=== PATIENT | male | born 1960 | race Caucasian/White ===

== ENCOUNTER → 2021-08-15 19:05 | Outpatient (BNVA) | payer OTHER, SELFPAY | PROVIDERS: Family Provider Family Medicine; PCP Family Medicine; Visit Provider Nurse Practitioner Family | DX: Z20.822 Contact with and (suspected) exposure to COVID-19 (principal) | CPT/HCPCS: 87426 ==

== ENCOUNTER 2022-07-31 21:10 | Observation (INO) | payer MEDICAID, SELFPAY ==
[2022-07-31] VITALS (13 sets, daily range): BP systolic 121–177; BP diastolic 91–137; PULSE 75–150; RESP 12–21; TEMP 37.2; O2SAT 92–99; BMI 27.8
--- NOTE | 2022-07-31 21:24 | XRR_ITS ---
PROCEDURE INFORMATION: Exam: XR Chest Exam date and time: 07/31/2022 9:30 PM Age: 62 years old Clinical indication: Pain; Chest pressure; Additional info: Cp TECHNIQUE: Imaging protocol: Radiologic exam of the chest. Views: 1 view. COMPARISON: CR XR chest 2V* [id number] 06/05/2019 9:46 AM FINDINGS: Lungs: Mild atelectasis or scar in the lung bases. The lungs are otherwise clear. Pleural spaces: Unremarkable. No pleural effusion. No pneumothorax. Heart/Mediastinum: Unremarkable. No cardiomegaly. Bones/joints: Unremarkable. XR/XR chest 1V portable [id number] IMPRESSION: No acute findings.
[2022-07-31 21:35] LABS: Basophils % 0.5 %; Eosinophils # 0.1 10^3/uL (0.0-0.8); Eosinophils % 0.8 %; Hematocrit 53.4 % (42.0-52.0); Hemoglobin 18.3 g/dL (11.7-16.6); Lymphocytes # 1.1 10^3/uL (0.8-4.8); Lymphocytes % 18.2 %; Mean Corpuscular HGB Conc 34.3 g/dL (30.0-36.0); Mean Corpuscular Hemoglobin 32.4 pg (28.0-34.0); Mean Corpuscular Volume 94.5 fl (80-94); Mean Platelet Volume 9.2 fL (7.4-10.4); Monocytes # 0.8 10^3/uL (0.2-0.9); Monocytes % 12.7 %; Neutrophils % 67.6 %; Nucleated Red Blood Cells % 0 %; Platelet Count 259 10^3/cmm (130-400); Red Blood Count 5.65 10^6/uL (4.1-5.3); White Blood Count 6.1 10^3/uL (4.0-10.0)
[2022-07-31] MEDS: dilTIAZem 5 mg/mL SDV 5 mL 20 MG IVP (21:36)
[2022-07-31] MEDS: dilTIAZem 100 MG in sodium chloride 0.9% (add-van) 100 ML IV (21:45)
[2022-07-31 21:49] LABS: D Dimer 0.77 ug/mIFEU (0-0.59)
[2022-07-31 21:55] LABS: Troponin(5th) Baseline 22 ng/L (0-15)
[2022-07-31 22:05] LABS: Alanine Aminotransferase 45 U/L (0-41); Albumin Level 4.4 g/dL (3.5-5.2); Alkaline Phosphatase 65 U/L (40-130); Anion Gap 12.8 (5-19); Aspartate Amino Transferase 48 U/L (0-40); Blood Urea Nitrogen 11 mg/dL (8-23); Calcium 10.2 mg/dL (8.5-10.5); Carbon Dioxide 31 mmol/L (22-29); Chloride 95 mmol/L (98-107); Globulin 3.1 g/dL (1.3-4.6); Glomerular Filtration Rate 68.1 mL/min (90-130); Glucose 136 mg/dL (65-115); NT Pro B Type Natriuretic Pept 256 pg/mL (0-125); Osmolality Calculated 281 mOsm/kg (285-295); Potassium 3.8 mmol/L (3.5-5.1); Sodium 135 mmol/L (136-145); Thyroid Stimulating Hormone 3.32 uIU/mL (0.27-4.20); Total Bilirubin 0.5 mg/dL (0.15-1.2); Total Protein 7.5 g/dL (6.6-8.7)
[2022-07-31] MEDS: metoprolol tartrate 1 mg/1 mL SDV 5 mL 5 MG IVP (22:50)
--- NOTE | 2022-07-31 23:17 | P.HP_ITS ---
Providers/Chief Complaint Primary Care Provider: Tammy Harrison DO Chief Complaint: Irregular hr and bp, sob History of Present Illness Edgar Cruz is a 62 year old male no significant past medical history presented with chief complaint palpitation. Patient is stating that his symptoms started around 2 PM when he started feeling anxious at that point he noticed his heart rate was very high. He did not experience any shortness of breath or chest pain. He only drinks 1 cup of coffee a day does not use any medications, he notes history of smoking, does not drink alcohol. No history of IV drug abuse. Patient is living a healthy life, works for [email or web address] discussed This test in the ER he was diagnosed with new onset A. fib RVR, his heart rate improved with use of AV tyson blocking agents at the time of evaluation heart rate is in 80s, blood pressure has stabilized as well . His rhythm has not converted to normal sinus Review of Systems Const: Denies: fever(s) Eyes: Denies: change in vision ENMT: Denies: throat pain Card: Denies: chest pain Resp: Denies: dyspnea GI: Denies: abdominal pain : Denies: flank pain Musc: Denies: neck pain Skin/Breast: Denies: rash Neuro: Denies: headache(s) Psych: Reports: anxiety Endo: Denies: polyuria Daryl/Lymph: Denies: easy bruising All/Imm: Denies: urticaria Medications/Allergies Home Medications Medication Instructions Recorded Confirmed Last Taken Type No Known Home Medications 08/11/21 07/31/22 Unknown History Allergies Allergy/AdvReac Type Severity Reaction Status Date / Time No Known Allergies Allergy Verified 08/11/21 12:07 PFSH Acute PFSH: Medical History HTN (hypertension) Surgical History No pertinent past surgical history Family History Other CAD (coronary artery disease) Social History (Updated 08/01/22 @ 00:10 by Clay Arce MD) Smoking and tobacco status: never smoked Alcohol intake: never Substance/Drug Use: never Vitals/I&O/Wt Last Vital Signs Temp 98.9 F 07/31/22 21:12 Pulse 87 07/31/22 23:00 Resp 13 07/31/22 23:00 BP 146/107 07/31/22 23:00 Pulse Ox 92 07/31/22 23:00 O2 Del Method 07/31/22 21:39 07/31/22 07/31/22 08/01/22 14:59 22:59 06:59 Intake Total 1.083 / 1.083 Balance 1.083 / 1.083 Weight last 48 hrs Weight 92.986 kg Physical Exam Narrative: Patient is Radiology Euvolemic S1, S2 variables, heart rate in 70s Abdomen soft Nonfocal neuro exam Normotensive Euvolemic Pleasant cooperative Data 07/31/22 21:30 07/31/22 21:30 A&P Assessment and plan (1) New onset a-fib: New onset A. 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
--- NOTE | 2022-07-31 23:20 | W.ED.SOB ---
HPI - SOB/Dyspnea General: Chief Complaint: Shortness of Breath/Dyspnea Stated Complaint: Irregular hr and bp, sob Time Seen by Provider: 07/31/22 21:24 Source: patient History of Present Illness: HPI Narrative: 62-year-old healthy gentleman with no real prior history. He presents with shortness of breath and palpitations. He denies overt chest pain. He says symptoms started around noon. He had not been active, was walking around the house. This feeling did not improve on its own, so he came for evaluation. He notes that he still quite short of breath. Heart rate was 160s in triage in the ER. MD elicited complaint: shortness of breath Pertinent past history: other Onset (ago): hour(s) Context: other Timing: constant Severity: moderate Exacerbating factors: exertion Relieving factors: nothing Known history of: other Associated symptoms: Reports diaphoresis, dizziness (Mild) and palpitations; Deny abdominal pain, chest congestion, chest pain, cough, fever(s) or vomiting Treatment prior to arrival: none Related Data: Home oxygen amount: none Review of Systems Const: Reports: diaphoresis; Denies: fever(s) ENMT: Denies: throat pain Card: Reports: palpitations; Denies: chest pain Resp: Reports: dyspnea; Denies: productive cough, non-productive cough or chest congestion GI: Denies: abdominal pain or vomiting Musc: Denies: neck pain Neuro: Reports: dizziness (Mild); Denies: headache(s) [facility] ED PFSH: Medical History HTN (hypertension) Surgical History No pertinent past surgical history Family History Other CAD (coronary artery disease) Social History (Updated 08/01/22 @ 00:10 by Clay Arce MD) Smoking and tobacco status: never smoked Alcohol intake: never Substance/Drug Use: never Physical Exam Const: COMMON NORMALS: no acute distress GENERAL APPEARANCE: cooperative and ill appearing; not frail appearing HENMT: COMMON NORMALS: normocephalic, atraumatic and Normal external nose present HEAD & SCALP: normocephalic and atraumatic FACE & SINUS: normal facial exam and face symmetric NOSE: Normal external nose present Eye: COMMON NORMALS: Equal, round and reactive pupils present and EOMs intact bilaterally PUPIL: Yes Equal, round and reactive pupils present Neck/C-Spine: GENERAL: Yes trachea midline Chest: CHEST: Yes Symmetrical chest wall rise Resp: COMMON NORMALS: No retractions, No use of accessory muscles and clear to auscultation bilaterally EFFORT & INSPECTION: Yes tachypneic AUSCULTATION: clear to auscultation bilaterally Cardio: RATE: tachycardic RHYTHM: abnormal rhythm irregularly irregular GI: COMMON NORMALS: Normal to inspection, nondistended, normoactive bowel sounds present Extremity: COMMON NORMALS: no pedal edema Neuro: ROSALBA COMA SCALE: document GCS findings Gilchrist coma scale eye opening: Spontaneous Gilchrist coma scale verbal response: Orientated Gilchrist coma scale motor response: Obey commands Rosalba coma scale total score: 15 SENSORY EXAM: Yes extremities (intact) Psych: COMMON NORMALS: speech normal SPEECH: Yes normal speech Skin: COMMON NORMALS: no rashes or lesions noted GENERAL SKIN EXAM: no rashes or lesions noted Course Vital Signs: Vital signs: Vital Signs Temperature 98.0 F 08/01/22 06:59 Pulse Rate 93 08/01/22 15:21 Respiratory Rate 19 H 08/01/22 15:21 Blood Pressure 109/72 08/01/22 15:21 Pulse Oximetry 97 08/01/22 15:21 Oxygen Delivery Me thod 08/01/22 07:56 MDM - SOB/Dyspnea Medical Decision Making 62-year-old healthy gentleman with palpitations. He presents in rapid atrial fibrillation. Heart rate improved with IV bolus of 20 mg of diltiazem, but then slowly increased. Metoprolol was given as well, followed by diltiazem drip. He is currently at 7.5 on the Cardizem drip. Heart rate is maintaining in the 80s. Still irregular in atrial fibrillation. Blood pressure is 146/100. He is not having any chest pain. First troponin is mildly elevated at 22. His D-dimer is 0.77. PE is excluded by years criteria. Patient will go to [facility]. Hospitalist is aware. Lab Data 07/31/22 21:30 07/31/22 21:30 Labs/Radiology: Radiology Impressions Chest X-Ray 07/31/22 21:24 IMPRESSION: No acute findings. Laboratory Results WBC 5.9 10^3/uL (4.0-10.0) 08/01/22 03:12 RBC 5.35 10^6/uL (4.1-5.3) H 08/01/22 03:12 Hgb 17.4 g/dL (11.7-16.6) H 08/01/22 03:12 Hct 50.4 % (42.0-52.0) 08/01/22 03:12 MCV 94.2 fl (80-94) H 08/01/22 03:12 MCH 32.5 pg (28.0-34.0) 08/01/22 03:12 MCHC 34.5 g/dL (30.0-36.0) 08/01/22 03:12 RDW 14.0 % (12.1-15.1) 08/01/22 03:12 Plt Count 255 10^3/cmm (130-400) 08/01/22 03:12 MPV 9.4 fL (7.4-10.4) 08/01/22 03:12 Neut % (Auto) 72.7 % 08/01/22 03:12 Lymph % (Auto) 14.3 % 08/01/22 03:12 Schley % (Auto) 10.8 % 08/01/22 03:12 Eos % (Auto) 1.0 % 08/01/22 03:12 Baso % (Auto) 0.7 % 08/01/22 03:12 Neut # (Auto) 4.31 10^3/uL (1.8-7.7) 08/01/22 03:12 Lymph # (Auto) 0.9 10^3/uL (0.8-4.8) 08/01/22 03:12 Schley # (Auto) 0.6 10^3/uL (0.2-0.9) 08/01/22 03:12 Eos # (Auto) 0.1 10^3/uL (0.0-0.8) 08/01/22 03:12 Baso # (Auto) 0.0 10^3/uL (0.0-0.1) 08/01/22 03:12 Nucleated RBC % (auto) 0 % 08/01/22 03:12 Nucleated RBCs # 0.0 /100WBC 08/01/22 03:12 D-Dimer 0.77 ug/mIFEU (0-0.59) H 07/31/22 21:30 Sodium 137 mmol/L (136-145) 08/01/22 03:12 Potassium 3.9 mmol/L (3.5-5.1) 08/01/22 03:12 Chloride 101 mmol/L (98-107) 08/01/22 03:12 Carbon Dioxide 26 mmol/L (22-29) 08/01/22 03:12 Anion Gap 13.9 (5-19) 08/01/22 03:12 BUN 11 mg/dL (8-23) 08/01/22 03:12 Creatinine 1.0 mg/dL (0.7-1.2) 08/01/22 03:12 GFR Calculation 76.0 mL/min (90-130) L 08/01/22 03:12 Glucose 103 mg/dL (65-115) 08/01/22 03:12 Calculated Osmolality 284 mOsm/kg (285-295) L 08/01/22 03:12 Calcium 9.5 mg/dL (8.5-10.5) 08/01/22 03:12 Magnesium 2.0 mg/dL (1.7-2.3) 08/01/22 03:12 Total Bilirubin 0.5 mg/dL (0.15-1.2) 07/31/22 21:30 AST 48 U/L (0-40) H 07/31/22 21:30 ALT 45 U/L (0-41) H 07/31/22 21:30 Alkaline Phosphatase 65 U/L (40-130) 07/31/22 21:30 Troponin T Baseline 22 ng/L (0-15) H 07/31/22 21:30 Troponin T 120 Minute 20.53 ng/L (0-15) H 07/31/22 23:00 Delta Troponin T -1.47 ABS# (0-10) L 07/31/22 23:00 Troponin T Hi Sens 6Hr 19.78 ng/L (0-15) H 08/01/22 03:12 Troponin T Hi Sens 6Hr Delta -2.22 ng/L (0-12) L 08/01/22 03:12 NT-Pro-B Natriuret Pep 256 pg/mL (0-125) H 07/31/22 21:30 Total Protein 7.5 g/dL (6.6-8.7) 07/31/22 21:30 Albumin 4.4 g/dL (3.5-5.2) 07/31/22 21:30 Globulin 3.1 g/dL (1.3-4.6) 07/31/22 21:30 TSH 3.32 uIU/mL (0.27-4.20) 07/31/22 21:30 Urine Opiates Screen Negative ng/mL (Negative) 08/01/22 01:15 Ur Barbiturates Screen Negative ng/mL (Negative) 08/01/22 01:15 Ur Phencyclidine Scrn Negative ng/mL (Negative) 08/01/22 01:15 Ur Amphetamines Screen Negative ng/mL (Negative) 08/01/22 01:15 U Benzodiazepines Scrn Negative ng/mL (Negative) 08/01/22 01:15 Urine Cocaine Screen Negative ng/mL (Negative) 08/01/22 01:15 U Marijuana (THC) Screen Negative ng/mL (Negative) 08/01/22 01:15 Critical Care Time Critical Care Time: Critical Care Time: Yes Total Critical Care Time: 40 Attestation: This case had a high probability of a clinically significant, sudden, or life threatening deterioration of this patient's condition which required my full and direct attention, intervention and personal management. Time is independent of any procedures performed. 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
[2022-07-31 23:27] LABS: Troponin 5 2HR 20.53 ng/L (0-15)
--- NOTE | 2022-07-31 23:31 | ECG_ITS ---
[facility] Test Date: 2022-07-31 Pat Name: Edgar Cruz Department: Room: Gender: Male Senior Design Engineering Specialist: : 1960 Requested By: Kemar Schultz Order Number: [id number] Jaqueline MD: William Schmid M.D. Measurements Intervals [place] Rate: 81 P: 0 ID: 0 QRS: -7 QRSD: 93 T: 2 QT: 332 QTc: 386 Interpretive Statements ATRIAL FIBRILLATION POSSIBLE RIGHT VENTRICULAR CONDUCTION DELAY [RSR (QR) IN V1/V2] No previous ECG available for comparison Electronically Signed On 08-01-2022 19:57:38 MANUFACTURING MAINTENANCE MANAGER by William Schmid M.D. [id number]
[2022-07-31 23:33] LABS: Troponin 5 2HR Delta -1.47 ABS# (0-10)
[2022-08-01] VITALS (22 sets, daily range): BP systolic 104–149; BP diastolic 70–113; PULSE 76–126; RESP 11–23; TEMP 36.6–36.8; O2SAT 92–97
--- NOTE | 2022-08-01 00:30 | USCV_ITS ---
Nancy Edgar Age: 62 Gender: M : 1960 Exam Date: 08/01/2022 07:14 Ordering Phys: Clay Arce MD Technologist: ANTHONY Exam Location: [facility] [place] Indication: afib BP: 119 / 81 HR: 99 Rhythm: Sinus Technical Quality: Adequate MEASUREMENTS (Male / Female) Normal Values 2D ECHO LV Diastolic Diameter PLAX 5.6 cm 4.2 - 5.9 / 3.9 - 5.3 cm LV Systolic Diameter PLAX 4.1 cm IVS Diastolic Thickness 0.8 cm 0.6 - 1.0 / 0.6 - 0.9 cm IVS Systolic Thickness 0.9 cm LVPW Diastolic Thickness 0.8 cm 0.6 - 1.0 / 0.6 - 0.9 cm LVPW Systolic Thickness 0.9 cm LVOT Diameter 2.2 cm LV Ejection Fraction 2D Teich 50.9 % LV Ejection Fraction MOD 2C 46.5 % LV Ejection Fraction 2C AL 49.3 % LA Diameter 3.5 cm IVC Diameter 1.9 cm M-MODE Aortic Annulus Diameter 3.9 cm LA Ao Ratio MM 1.1 MV E Point Septal Separation 0.7 cm DOPPLER AV Peak Velocity 75.0 cm/s LVOT Peak Velocity 71.0 cm/s AV Area Cont Eq vti 3.6 cm squared AV Area Cont Eq pk 3.6 cm squared MV Area PHT 5.0 cm squared Mitral E to A Ratio 2.4 MV E' Velocity 36.8 cm/s Mitral E to MV E' Ratio 14.1 Mitral E to LV E' Lateral Ratio 19.5 Mitral E to LV E' Septal Ratio 11.0 TR Peak Velocity 203.3 cm/s TR Peak Gradient 16.5 mmHg TV Peak E Velocity 40.0 cm/s PV Peak Velocity 64.0 cm/s FINDINGS Left Ventricle Left ventricle is mildly dilated. LV systolic function is normal with EF of 50 to 55%. No regional wall motion abnormalities are seen. Diastolic function is indeterminate because of atrial fibrillation. Right Ventricle Normal in size and function Right Atrium Normal in size Left Atrium Dilated Mitral Valve Structurally normal mitral valve. Mild mitral regurgitation. Aortic Valve Structurally normal aortic valve. No significant stenosis or regurgitation Tricuspid Valve Mild tricuspid regurgitation. Insufficient TR jet to calculate RVSP Pulmonic Valve Not well visualized Pericardium Normal Aorta Aortic root is mildly dilated. IVC Appears to be normal CONCLUSIONS Technically limited quality echocardiogram because of poor ultrasonic windows. left ventricle is mildly dilated. LV systolic function is normal with EF 50 to 55%. Diastolic function is indeterminate because of atrial fibrillation Left atrial dilation Mild mitral regurgitation. Mild tricuspid regurgitation Mildly dilated aortic root. No comparison studies are available William Schmid MD (Electronically Signed) Final Date: 01 August 2022 11:06 S
[2022-08-01] MEDS: metoprolol tartrate 25 mg Tablet 12.5 MG PO ×2 (01:08→09:04)
[2022-08-01] MEDS: enoxaparin 100 mg/mL Syringe 90 MG SUBCUT ×2 (01:10→13:19)
[2022-08-01 02:24] LABS: Amphetamines Screen Urine Negative (Negative); Barbiturates Screen Urine Negative (Negative); Benzodiazepines Screen Urine Negative (Negative); Cocaine Screen Urine Negative (Negative); Opiate Screen Urine Negative (Negative); PCP Screen Urine Negative (Negative); THC Screen Urine Negative (Negative)
--- NOTE | 2022-08-01 03:24 | ECG_ITS ---
[facility] Test Date: 2022-08-01 Pat Name: Edgar Cruz Department: Room: 101 Gender: Male Laboratory Development Technician: : 1960 Requested By: Kemar Schultz Order Number: [id number] Parsons MD: William Schmid M.D. Measurements Intervals [place] Rate: 98 P: 0 CT: 0 QRS: -9 QRSD: 99 T: 4 QT: 316 QTc: 404 Interpretive Statements ATRIAL FIBRILLATION SEPTAL MYOCARDIAL INFARCTION , OF INDETERMINATE AGE [40+ ms Q WAVE IN V1/V2] Compared to ECG 07/31/2022 23:31:45 Myocardial infarct finding now present Electronically Signed On 08-01-2022 19:57:10 SEASONING MIXER by William Schmid M.D. [id number]
[2022-08-01 04:07] LABS: Basophils % 0.7 %; Eosinophils # 0.1 10^3/uL (0.0-0.8); Hematocrit 50.4 % (42.0-52.0); Hemoglobin 17.4 g/dL (11.7-16.6); Lymphocytes # 0.9 10^3/uL (0.8-4.8); Lymphocytes % 14.3 %; Mean Corpuscular HGB Conc 34.5 g/dL (30.0-36.0); Mean Corpuscular Hemoglobin 32.5 pg (28.0-34.0); Mean Corpuscular Volume 94.2 fl (80-94); Mean Platelet Volume 9.4 fL (7.4-10.4); Monocytes # 0.6 10^3/uL (0.2-0.9); Monocytes % 10.8 %; Neutrophils # 4.31 10^3/uL (1.8-7.7); Neutrophils % 72.7 %; Nucleated Red Blood Cells % 0 %; Platelet Count 255 10^3/cmm (130-400); Red Blood Count 5.35 10^6/uL (4.1-5.3); White Blood Count 5.9 10^3/uL (4.0-10.0)
[2022-08-01 04:31] LABS: Troponin 5 6HR 19.78 ng/L (0-15)
[2022-08-01 04:35] LABS: Anion Gap 13.9 (5-19); Blood Urea Nitrogen 11 mg/dL (8-23); Calcium 9.5 mg/dL (8.5-10.5); Carbon Dioxide 26 mmol/L (22-29); Chloride 101 mmol/L (98-107); Glucose 103 mg/dL (65-115); Osmolality Calculated 284 mOsm/kg (285-295); Potassium 3.9 mmol/L (3.5-5.1); Sodium 137 mmol/L (136-145); Troponin 5 6HR Delta -2.22 ng/L (0-12)
[2022-08-01] MEDS: lisinopril 10 mg Tablet PO (09:04)
[2022-08-01] MEDS: dilTIAZem 30 mg Tablet PO ×3 (10:42→21:08)
--- NOTE | 2022-08-01 12:58 | P.PN_ITS ---
Subjective Subjective: Patient was seen and examined this morning continued to be in A. fib, though the rate is better controlled. We will switch him to Cardizem p.o. 30 every 6h, and monitor for now. Medications: Medication Review Details: Generic Name Dose Route Start Last Admin Trade Name Shara PRN Reason Stop Dose Admin Diltiazem HCl 30 mg 08/01/22 10:00 08/01/22 10:42 Diltiazem 30 Mg Tablet PO 30 mg Q6H MAURICE Administration Enoxaparin Sodium 90 mg 08/01/22 01:00 08/01/22 01:10 Enoxaparin 100 M g/Ml Syringe SUBCUT 90 mg Q12H MAURICE Administration Lisinopril 10 mg 08/01/22 09:00 08/01/22 09:04 Lisinopril 10 Mg Tablet PO 10 mg DAILY MAURICE Administration Vitals/I&O/Wt Last Vital Signs Temp 98.0 F 08/01/22 06:59 Pulse 90 08/01/22 12:28 Resp 17 08/01/22 12:28 BP 136/98 08/01/22 12:28 Pulse Ox 92 08/01/22 12:28 O2 Del Method 08/01/22 07:56 07/31/22 08/01/22 08/01/22 22:59 06:59 14:59 Intake Total 1.083 / 1.083 1190.292 / 1191.375 480 / 480 Output Total 1400 / 1400 550 / 550 Balance 1.083 / 1.083 -209.708 / -208.625 -70 / -70 Weight last 48 hrs Weight 92.986 kg Physical Exam Resp: COMMON NORMALS: clear to auscultation bilaterally EFFORT & INSPECTION: Yes symmetric chest movement AUSCULTATION: clear to auscultation bilaterally Cardio: COMMON NORMALS: No murmurs present (Cardio) OTHER: Irregularly irregular rhythm, S1-S2 variable intensity, GI: COMMON NORMALS: Normal to inspection, nondistended, normoactive bowel sounds present, Soft to palpation, non-tender, No hepatosplenomegaly present and no masses AUSCULTATION: Yes normoactive bowel sounds PALPATION: Yes Soft to palpation and Yes No hepatosplenomegaly present RECTAL EXAM: Yes deferred Extremity: COMMON NORMALS: no clubbing, cyanosis or edema and no pedal edema Data 08/01/22 03:12 08/01/22 03:12 A&P Assessment and plan (1) New onset a-fib: 62-year-old male with no significant past medical history, was brought in with chief complaint of, acute onset of palpitation, yesterday during daytime and since then it got progressively worsened, it was accompanied with chest discomfort, feeling of uneasiness, shortness of breath, anxiety. He was admitted for the management of new onset A. fib with RVR. Assessment: Newly diagnosed A. fib with RVR. Strong family history of heart disease Plan: 2D echo: Technically difficult study LV is mildly dilated LVEF is 50-55, mild MR, mildly dilated aortic root. TSH: Normal HbA1c Lipid panel Fasting blood sugar is 103 U tox negative D-dimer: 0.77 Troponin trend: [id number]: 1 for hypertension, age is less than 65 Continue Cardizem 30 every 6h. Patient currently do not qualify for anticoagulation. Likely cardiology follow-up as an outpatient. CODE STATUS: Full code DVT prophylaxis: Not needed on Lovenox. Attestations Medical Necessity Statement*: Patient is to be in hospital for management of newly diagnosed A. fib with RVR. Coding Level of Care Code Acute Pet Resort Concierge for Fredi Coronel Diagnoses New onset a-fib I48.91
[2022-08-02] VITALS (8 sets, daily range): BP systolic 118–125; BP diastolic 77–88; PULSE 79–100; RESP 15–18; TEMP 36.7–36.8; O2SAT 94–97
[2022-08-02] MEDS: enoxaparin 100 mg/mL Syringe 90 MG SUBCUT (00:33)
[2022-08-02 04:04] LABS: Basophils % 0.3 %; Eosinophils # 0.1 10^3/uL (0.0-0.8); Eosinophils % 1.4 %; Hematocrit 53.2 % (42.0-52.0); Hemoglobin 17.8 g/dL (11.7-16.6); Lymphocytes % 16.3 %; Mean Corpuscular HGB Conc 33.5 g/dL (30.0-36.0); Mean Corpuscular Hemoglobin 32.1 pg (28.0-34.0); Mean Platelet Volume 9.5 fL (7.4-10.4); Monocytes # 0.6 10^3/uL (0.2-0.9); Monocytes % 10.1 %; Neutrophils # 4.18 10^3/uL (1.8-7.7); Neutrophils % 71.6 %; Nucleated Red Blood Cells % 0 %; Platelet Count 246 10^3/cmm (130-400); Red Blood Count 5.54 10^6/uL (4.1-5.3); White Blood Count 5.8 10^3/uL (4.0-10.0)
[2022-08-02 04:12] LABS: Estmated Average Glucose 97
[2022-08-02] MEDS: dilTIAZem 30 mg Tablet PO ×2 (04:20→09:28)
[2022-08-02 04:28] LABS: Alanine Aminotransferase 34 U/L (0-41); Albumin Level 3.7 g/dL (3.5-5.2); Alkaline Phosphatase 54 U/L (40-130); Anion Gap 12.8 (5-19); Aspartate Amino Transferase 31 U/L (0-40); Blood Urea Nitrogen 12 mg/dL (8-23); Calcium 9.3 mg/dL (8.5-10.5); Carbon Dioxide 29 mmol/L (22-29); Chloride 100 mmol/L (98-107); Chol HDL Ratio 5.03 mg/dL (1.0-5.00); Cholesterol 176 mg/dL (0-200); Globulin 2.8 g/dL (1.3-4.6); Glomerular Filtration Rate 68.1 mL/min (90-130); Glucose 107 mg/dL (65-115); HDL Cholesterol 35 mg/dL (60-100); LDL Cholesterol Calculated 124 mg/dL (50-129); LDL HDL Ratio 3.54 RATIO (0.00-3.22); Osmolality Calculated 286 mOsm/kg (285-295); Potassium 3.8 mmol/L (3.5-5.1); Sodium 138 mmol/L (136-145); Total Bilirubin 0.7 mg/dL (0.15-1.2); Total Protein 6.5 g/dL (6.6-8.7); Triglycerides 85 mg/dL (0-150)
[2022-08-02] MEDS: lisinopril 10 mg Tablet PO (09:28)
--- NOTE | 2022-08-02 10:46 | PM.DCS ---
Discharge Providers Date of Admission: 08/01/22 13:40 Date of Discharge: August 02, 2022 Attending Provider at Admission: Clay Arce MD Attending Provider at Discharge: Roger Stack MD Primary Care Provider: Tammy Harrison DO Diagnoses at Discharge Discharge Diagnosis (1) New onset a-fib: Status: Acute Reason for Visit Reason for Visit: Irregular hr and bp, sob Hospital Course Hospital Course 62-year-old male with no significant past medical history, was brought in with chief complaint of, acute onset of palpitation, was admitted for the management of newly diagnosed A. fib with RVR, 2D echo was done during the hospital stay:LV is mildly dilated LVEF is 50-55, mild MR, mildly dilated aortic root.TSH: Normal HbA1c: 5 , Lipid panel: HDL 35, LDL 124, cholesterol 176, triglyceride 85, TSH:3.32 ,U tox negative [id number]: 1 for? hypertension, D-dimer: 0.77. Patient was kept on p.o. Cardizem, he was discharged on Cardizem 120 p.o. daily, as well as aspirin 81 p.o. daily. Patient converted to sinus rhythm. He will follow cardiology as well as PCP as outpatient. Overall patient responded well to above medical management and was discharged in stable condition to home.Possible explanation for new onset A. fib: Could be undiagnosed sleep apnea. Physical Exam Resp: COMMON NORMALS: clear to auscultation bilaterally EFFORT & INSPECTION: Yes symmetric chest movement AUSCULTATION: clear to auscultation bilaterally Cardio: COMMON NORMALS: No murmurs present (Cardio) OTHER: Regular rate and rhythm, S1-S2 normal,no MRG GI: COMMON NORMALS: Normal to inspection, nondistended, normoactive bowel sounds present, Soft to palpation, non-tender, No hepatosplenomegaly present and no masses AUSCULTATION: Yes normoactive bowel sounds PALPATION: Yes Soft to palpation and Yes No hepatosplenomegaly present RECTAL EXAM: Yes deferred Extremity: COMMON NORMALS: no clubbing, cyanosis or edema and no pedal edema Discharge Data Studies Completed and Pending Completed Studies During Hospitalization Category Date Time Status XR chest 1V portable [id number] Stat Exams 07/31/22 21:24 Completed CV. echo complete* [id number] Routine Ultrasound 08/01/22 00:30 Completed Pending at discharge Category Date Time Status CBC Auto Diff [Complete Blood Count w/Auto] AM LABS Lab 08/03/22 04:00 Ordered CBC Auto Diff [Complete Blood Count w/Auto] AM LABS Lab 08/04/22 04:00 Ordered CMP [Comprehensive Metabolic Panel] AM LABS Lab 08/03/22 04:00 Ordered CMP [Comprehensive Metabolic Panel] AM LABS Lab 08/04/22 04:00 Ordered Radiology Impressions Chest X-Ray 07/31/22 21:24 IMPRESSION: No acute findings. Laboratory Results WBC 5.8 10^3/uL (4.0-10.0) 08/02/22 03:12 RBC 5.54 10^6/uL (4.1-5.3) H 08/02/22 03:12 Hgb 17.8 g/dL (11.7-16.6) H 08/02/22 03:12 Hct 53.2 % (42.0-52.0) H 08/02/22 03:12 MCV 96.0 fl (80-94) H 08/02/22 03:12 MCH 32.1 pg (28.0-34.0) 08/02/22 03:12 MCHC 33.5 g/dL (30.0-36.0) 08/02/22 03:12 RDW 14.0 % (12.1-15.1) 08/02/22 03:12 Plt Count 246 10^3/cmm (130-400) 08/02/22 03:12 MPV 9.5 fL (7.4-10.4) 08/02/22 03:12 Neut % (Auto) 71.6 % 08/02/22 03:12 Lymph % (Auto) 16.3 % 08/02/22 03:12 [place] % (Auto) 10.1 % 08/02/22 03:12 Eos % (Auto) 1.4 % 08/02/22 03:12 Baso % (Auto) 0.3 % 08/02/22 03:12 Neut # (Auto) 4.18 10^3/uL (1.8-7.7) 08/02/22 03:12 Lymph # (Auto) 1.0 10^3/uL (0.8-4.8) 08/02/22 03:12 [place] # (Auto) 0.6 10^3/uL (0.2-0.9) 08/02/22 03:12 Eos # (Auto) 0.1 10^3/uL (0.0-0.8) 08/02/22 03:12 Baso # (Auto) 0.0 10^3/uL (0.0-0.1) 08/02/22 03:12 Nucleated RBC % (auto) 0 % 08/02/22 03:12 Nucleated RBCs # 0.0 /100WBC 08/02/22 03:12 D-Dimer 0.77 ug/mIFEU (0-0.59) H 07/31/22 21:30 Sodium 138 mmol/L (136-145) 08/02/22 03:12 Potassium 3.8 mmol/L (3.5-5.1) 08/02/22 03:12 Chloride 100 mmol/L (98-107) 08/02/22 03:12 Carbon Dioxide 29 mmol/L (22-29) 08/02/22 03:12 Anion Gap 12.8 (5-19) 08/02/22 03:12 BUN 12 mg/dL (8-23) 08/02/22 03:12 Creatinine 1.1 mg/dL (0.7-1.2) 08/02/22 03:12 GFR Calculation 68.1 mL/min (90-130) L 08/02/22 03:12 Glucose 107 mg/dL (65-115) 08/02/22 03:12 Estimat Average Glucose 97 08/02/22 03:12 Hemoglobin A1c 5.0 % (4.0-6.0) 08/02/22 03:12 Calculated Osmolality 286 mOsm/kg (285-295) 08/02/22 03:12 Calcium 9.3 mg/dL (8.5-10.5) 08/02/22 03:12 Magnesium 2.0 mg/dL (1.7-2.3) 08/01/22 03:12 Total Bilirubin 0.7 mg/dL (0.15-1.2) 08/02/22 03:12 AST 31 U/L (0-40) 08/02/22 03:12 ALT 34 U/L (0-41) 08/02/22 03:12 Alkaline Phosphatase 54 U/L (40-130) 08/02/22 03:12 Troponin T Baseline 22 ng/L (0-15) H 07/31/22 21:30 Troponin T 120 Minute 20.53 ng/L (0-15) H 07/31/22 23:00 Delta Troponin T -1.47 ABS# (0-10) L 07/31/22 23:00 Troponin T Hi Sens 6Hr 19.78 ng/L (0-15) H 08/01/22 03:12 Troponin T Hi Sens 6Hr Delta -2.22 ng/L (0-12) L 08/01/22 03:12 NT-Pro-B Natriuret Pep 256 pg/mL (0-125) H 07/31/22 21:30 Total Protein 6.5 g/dL (6.6-8.7) L 08/02/22 03:12 Albumin 3.7 g/dL (3.5-5.2) 08/02/22 03:12 Globulin 2.8 g/dL (1.3-4.6) 08/02/22 03:12 Triglycerides 85 mg/dL (0-150) 08/02/22 03:12 Cholesterol 176 mg/dL (0-200) 08/02/22 03:12 LDL Cholesterol, Calc 124 mg/dL (50-129) 08/02/22 03:12 HDL Cholesterol 35 mg/dL (60-100) L 08/02/22 03:12 LDL/HDL Ratio 3.54 RATIO (0.00-3.22) H 08/02/22 03:12 Cholesterol/HDL Ratio 5.03 mg/dL (1.0-5.00) H 08/02/22 03:12 TSH 3.32 uIU/mL (0.27-4.20) 07/31/22 21:30 Urine Opiates Screen Negative ng/mL (Negative) 08/01/22 01:15 Ur Barbiturates Screen Negative ng/mL (Negative) 08/01/22 01:15 Ur Phencyclidine Scrn Negative ng/mL (Negative) 08/01/22 01:15 Ur Amphetamines Screen Negative ng/mL (Negative) 08/01/22 01:15 U Benzodiazepines Scrn Negative ng/mL (Negative) 08/01/22 01:15 Urine Cocaine Screen Negative ng/mL (Negative) 08/01/22 01:15 U Marijuana (THC) Screen Negative ng/mL (Negative) 08/01/22 01:15 Vitals Last Vital Signs Temp 98.0 F 08/02/22 07:47 Pulse 100 08/02/22 10:25 Resp 16 08/02/22 10:25 BP 122/80 08/02/22 07:47 Pulse Ox 97 08/02/22 10:25 O2 Del Method 08/02/22 10:25 Discharge Plan Discharge Patient Disposition: Home Condition: Stable Prescriptions: New aspirin 81 mg tablet,delayed release (DR/EC) 81 mg PO DAILY Qty: 30 3RF Cardizem CD 120 mg capsule,extended release 24hr 120 mg PO DAILY Qty: 30 3RF lisinopril 10 mg tablet 10 mg PO DAILY 30 Days Qty: 30 0RF Discharge Orders: Discharge Order (Routine); Ordered 08/02/22 Ordered By: Roger Stack Referrals: Ezequiel Lam MD [Physician] - 08/06/22 10:00 am Snushine Lovell MD [Physician] - 1 month (Dr. Lovell's office asked if they could call you later and set up the appointment to see her. If you don't here from them by the end of this week, please call and ask to be scheduled.) Discharge Diet: Cardiac Discharge Activity: Resume usual activity Patient Instructions: Opioid Safety Discharge Attestations Time Spent in Discharge Care*: greater than 30 min Quality Metrics Clinical Quality Measures [ No reported AMI, CVA or VTE this stay] Coding Level of Care Code Acute Chg FW DC note Diagnoses New onset a-fib I48.91
--- NOTE | 2022-08-02 11:38 | PC.CHAP ---
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 [] Patient/Family/Request visit [] Outpatient visit [] Follow-up visit [] Physician referral [] Code/Alert [x] Routine visit [] Staff referral [] Actively dying [] Patient sleeping [] Family support [] [] Out of room [] Palliative care [] [] Receiving care in room [] Pre-surgical visit [] Trauma [] Long length of stay [] ICU visit [] Other: Relational/Emotional Strength [x] Patient feels connected with others/family/visitors/staff [] Distress [] Loneliness/isolation [] Abandonment Spirituality of Patient [x] Person of Josy [] Attends Anabaptist of their Josy [x] Believes in Prayer [] Reads Bible or Pentecostal materials [] There are Spiritual issues to be addressed Line Clearance Foreman Interventions [x] Prayer [x] Active listening x[] Non-anxious presence [] Spiritual/emotional support [] Crisis/trauma care [] Spiritual counseling [] Bereavement support [] Provided bereavement packet [] Provided Bible/devotional materials [] Provided toy/stuffed animal, coloring book to patient or family member [] Provided Communion [] Anointing/[place] [] Salvation [x] Completed spiritual assessment [] Other: Impact on Illness or Injury [] Angry [] Fearful [] Anxious [] Often cries [] Exhaustion [] Unable to work [] Unable to attend religious [] Unable to walk/stand [] Unable to read [] Unable to drive [] Unable to eat/drink [] Unable to sleep [] Unable to be with family [] Patient intubated [] Other: Summary Time spent with patient 1`0 min
--- NOTE | 2022-08-02 12:02 | PC.NURSE ---
Patient was discharged at 1120am today. IV removed and instructions and education given on new onset afib and medication. Medication sent to pharmacy. Patient verbalized understanding and walked with nurse to the front door where friend was waiting.
== END 2022-08-02 12:04 | disposition home or self-care (01) ==
LOC: ER 23:33 → CSU 23:34
PROVIDERS: Admitting Provider Internal Medicine; Emergency Provider Emergency Medicine; PCP Family Medicine; Visit Provider Internal Medicine
DX: I48.91 Unspecified atrial fibrillation (principal); I10 Essential (primary) hypertension; Z82.49 Family history of ischemic heart disease and other diseases of the circulatory system; Z87.891 Personal history of nicotine dependence
CPT/HCPCS: 36415; 71045; 80048; 80053; 80061; 80306; 83036; 83735; 83880; 84443; 84484; 85025; 85378; 90471; 90686; 93005; 93306; 96372; 96374; 96375; 99285; G0378; J1650; J3490

== ENCOUNTER → 2024-01-25 10:05 | Outpatient (BNVA) | payer OTHER, SELFPAY | PROVIDERS: Visit Provider Family Medicine Adult Medicine | DX: I10 Essential (primary) hypertension (principal); I48.91 Unspecified atrial fibrillation; N52.9 Male erectile dysfunction, unspecified; N40.1 Benign prostatic hyperplasia with lower urinary tract symptoms; G47.00 Insomnia, unspecified | CPT/HCPCS: 80053; 80061; 84443; 85025; G0103 ==